=== PATIENT | female | born 1995 | race Caucasian/White ===

== ENCOUNTER 2018-02-17 14:50 | Emergency (ER) | payer OTHER ==
--- NOTE | 2018-02-17 15:23 | ED ---
General Adult HPI - General Chief complaint: Head Injury Stated complaint: Sore Throat Time Seen by Provider: 02/17/18 15:07 Source: patient, RN notes reviewed Mode of arrival: ambulatory Limitations: no limitations - History of Present Illness Initial comments: Patient's a 22-year-old female presented to the emergency room today with multiple complaints. Patient does admit that 3 days ago she was laying in bed when her phone fell off the shelf and landed on her forehead. She states it did wake her up. She states she was no loss consciousness. She states that she did have a headache for the past related data has been improving. Currently rates it a /10. States that last night she had an episode of vomiting. Patient states no nausea or vomiting today. She states she did feel dizzy yesterday but no dizziness today. Patient also admits that she's had sore throat. States her is also been seen here in the emergency room for the same complaint of a sore throat. States this started yesterday. He states it hurts when she swallows. She denies any other complaints or symptoms at this time. Patient denies any recent fever, chills, shortness of breath, chest pain, back pain, abdominal pain, numbness or tingling, dysuria or hematuria, constipation or diarrhea, visual changes, or any other complaints. - Related Data Allergies Allergy/AdvReac Type Severity Reaction Status Date / Time pecan nut Allergy Anaphylaxis Verified 02/17/18 16:08 HUMMUS (UNKNOWN) Allergy Unknown Uncoded 02/17/18 16:08 Review of Systems ROS Statement: Those systems with pertinent positive or pertinent negative responses have been documented in the HPI. ROS Other: All systems not noted in ROS Statement are negative. Past Medical History Past Medical History: No Reported History History of Any Multi-Drug Resistant Organisms: None Reported Past Surgical History: Tonsillectomy Past Psychological History: No Psychological Hx Reported Smoking Status: Former smoker Past Alcohol Use History: Rare Past Drug Use History: Marijuana General Exam - General Exam Comments Initial Comments: General: The patient is awake and alert, in no distress, and does not appear acutely ill. Eye: Pupils are equal, round and reactive to light. Extra-ocular movements are intact. No nystagmus. There is normal conjunctiva bilaterally. No signs of icterus. Ears, nose, mouth and throat: There are moist mucous membranes and no oral lesions. Neck: The neck is supple, there is no tenderness or JVD. Cardiovascular: There is a regular rate and rhythm. No murmur, rub or gallop is appreciated. Respiratory: Lungs are clear to auscultation, respirations are non-labored, breath sounds are equal. No wheezes, stridor, rales, or rhonchi. Musculoskeletal: Normal ROM, no tenderness. Sensation intact. Strength 5/5. Pulses equal bilaterally 2+. Neurological: A&O x 3. CN II-XII intact, There are no obvious motor or sensory deficits. Coordination appears grossly intact. Speech is normal. Normal finger nose testing. Normal rapid alternating movements. Strength 5/5 bilaterally both upper and lower extremities. Normal gait. Normal tandem walking. Normal dentition test. Negative Romberg's. Skin: Skin is warm and dry and no rashes or lesions are noted. Psychiatric: Cooperative, appropriate mood & affect, normal judgment. Limitations: no limitations Course Vital Signs 02/17/18 14:55 Temperature 97.4 F L Pulse Rate 93 Respiratory 18 Rate Blood Pressure 103/73 O2 Sat by Pulse 98 Oximetry Medical Decision Making - Medical Decision Making Patient seen here the emergency room has normal neurological exam. She did have occurred 3 days ago but symptoms of headache has been improving. Patient is advised that should return to emergency room symptoms increase or worsen. Patient states that she's had a sore throat for the last day. Strep test is negative. Advised most viral illness at this time. Advised to follow family doctor or return here to emergency room if any symptoms increase worsen or for concerns. - Lab Data Lab Results 02/17/18 Range/Units 15:20 Group A Strep Rapid Negative (Negative) Disposition Clinical Impression: Head injury, Acute pharyngitis Disposition: HOME SELF-CARE Condition: Good Instructions: Concussion (ED) Additional Instructions: Please use medication as discussed. Please follow-up with family doctor in the next 2 days of symptoms have not improved. Please return to emergency room if the symptoms increase or worsen or for any other concerns. Is patient prescribed a controlled substance at d/c from ED?: No Referrals: Ash Sanders DO [Primary Care Provider] - 1-2 days Time of Disposition: 16:10
[2018-02-17 16:30] VITALS: BP 114/56; PULSE 74; RESP 16; TEMP 97.9
== END 2018-02-17 16:30 | disposition home or self-care (01) ==
LOC: EC 14:50
DX: S09.90XA Unspecified injury of head, initial encounter (principal); J02.9 Acute pharyngitis, unspecified; Z87.891 Personal history of nicotine dependence; Z91.010 Allergy to peanuts; Z91.018 Allergy to other foods; Z90.89 Acquired absence of other organs; W20.8XXA Other cause of strike by thrown, projected or falling object, initial encounter; Y93.89 Activity, other specified; Y92.009 Unspecified place in unspecified non-institutional (private) residence as the place of occurrence of the external cause
CPT/HCPCS: 87081; 87430; 99283